=== PATIENT | female | born 2000 ===

== ENCOUNTER 2022-10-07 12:29 | Outpatient (REF) | payer BC, MEDICAID, SELFPAY ==
[2022-10-07 13:38] LABS: Hematocrit 40.3 %; Hemoglobin 12.5 g/dl
[2022-10-07 14:18] LABS: Alanine Aminotransferase 8 U/L; Albumin Level 4.4 g/dL; Alkaline Phosphatase 29 U/L; Aspartate Amino Transferase 17 U/L; Bilirubin Direct 0.5 mg/dL; Bilirubin Total 1.7 mg/dL; Cholesterol 144 mg/dL; HDL Cholesterol 51 mg/dL; LDL Cholesterol Calculated 72 mg/dL; Total Protein 7.3 g/dL; Triglycerides 109 mg/dL
[2022-10-12 15:58] LABS: Testosterone, Free 46.5 pg/mL (see note); Testosterone, Total 342 ng/dL (see note)
== END 2022-10-07 12:30 | disposition home or self-care (01) ==
LOC: HO.HHCL 12:29
PROVIDERS: Visit Provider Nurse Practitioner Primary Care
DX: F64.9 Gender identity disorder, unspecified (principal); Z13.220 Encounter for screening for lipoid disorders; Z13.0 Encounter for screening for diseases of the blood and blood-forming organs and certain disorders involving the immune mechanism
CPT/HCPCS: 36415; 80061; 80076; 84402; 84403; 85014; 85018

== ENCOUNTER 2024-03-08 11:43 | Outpatient (REF) | payer MEDICAID, SELFPAY ==
[2024-03-08 13:29] LABS: Hematocrit 38.9 %; Hemoglobin 12.3 g/dl
--- OUTSIDE RECORDS SUMMARY | 2024-03-08 13:31 | XMS_ITS | Encounter Summary ---
Author Organization [employer] [facility] Address [address] [place] [address] Care Team Providers Care Six Sigma Project Manager Name Role Phone Valerie Robin Primary Care Provider Encounter Details Date Type Department Care Team (Late st Contact Info) Description 01/20/2022 Telephone [facility]INE [address] [place] [address] Jen Heath RN Social History Tobacco Use Types Packs/Day Years Used Date Smoking Tobacco: Never Assessed Comments Unknown Sex and Gender Information Value Date Recorded Sex Assigned at Female 12/16/2021 10:38 AM EDT Legal Sex Female 10:38 AM EDT Gender Identity Male 12/16/2021 10:38 AM EDT Sexual Orientation Choose not to disclose 2022 6:42 PM EST documented as of this encounter Plan of Treatment Upcoming Encounters Date Type Department Care Team (Late st Contact Info) Description 03/15/2024 11:15 AM EST Office Visit [facility] [address] [place] [address] Valerie Robin ANP [address] [place] [address] documented as of this encounter Visit Diagnoses Not on filedocumented in this encounter Care Teams Six Sigma Project Manager Relationship Specialty Start Date End Date Valerie Robin ANP [address] [place] [address] PCP - General Family Medicine 12/18/20 documented as of this encounter
--- OUTSIDE RECORDS SUMMARY | 2024-03-08 13:31 | XMS_ITS | Clinical Summary ---
Author Organization [facility] Address [address] [place] [address] Phone Care Team Providers Care Funeral Home Director Name Role Phone Unavailable Primary Care Provider Unavailabl e Social History Tobacco Use Types Packs/Day Years Used Date Smoking Tobacco: Never Assessed Comments Unknown Sex and Gender Information Value Date Recorded Sex Assigned at Not on file Legal Sex Female 12:17 PM EST Gender Identity Not on file Sexual Orientation Not on file Plan of Treatment Health Maintenance Due Date Last Done Comments MMR Vaccines (1 of 1 - Stand bang series) 2003 Varicella Vaccines (1 of 2 - 13+ 2-dose series) 2015 HPV Vaccines (1 - 3-dose series) 2017 Men B Vaccine (1 of 2 - Standard) 2018 DTaP,Tdap,and Td Vaccines (1 - Tdap) 2020 Hepatitis B Vaccines (1 of 3 - 19+ 3-dose series) 2021 Influenza Vaccines (#1) 2023 COVID-19 Vaccine ( - 2023-2 5 season) 2023 HIB Vaccines Aged Out No longer eligi ble based on patient's age to complete this topic Hepatitis A Vaccines Aged Out No long er eligible based on patient's age to complete this topic IPV Vaccines Aged Out No longer eligi ble based on patient's age to complete this topic Meningococcal Vaccine Aged Out No silvana bennie eligible based on patient's age to complete this topic Pneumococcal Vaccine Aged Out No long er eligible based on patient's age to complete this topic
--- OUTSIDE RECORDS SUMMARY | 2024-03-08 13:31 | XMS_ITS | Encounter Summary ---
Author Organization [employer] Address [address] [place] [address] 7 [place] [address] Care Team Providers Care Fine Wire Drawer Name Role Phone Valerie Robin Primary Care Provider [phone] Reason for Referral * Consultation (STAT) - Authorized Specialty Diagnoses / Procedures Referred By Contac t Referred To Contact Neurology Diagnoses Neuropathic pain Melvin Zamudio MD [address] [place] [address] Phone: tel: fax: [facility] Neurology [address] [place], [place] Phone: tel: fax: Referral ID Status Reason Start Date Expiration Date Visits Requested Visits Authorized [id number] Authorized Specialty Services Required 03/08/2024 03/08/2025 6 6 * Neurology (Urgent) - Authorized Specialty Diagnoses / Procedures Referred By Contac t Referred To Contact Diagnoses Neuropathic pain Procedures Nerve conduction test Melvin Zamudio MD [address] [place] [address] Phone: tel: fax: [facility] [address] [place] [address] Phone: tel: fax: Referral ID Status Reason Start Date Expiration Date V isits Requested Visits Authorized [id number] Authorized 03/08/2024 03/08/2025 1 1 Reason for Visit * Reason Comments Follow-up follow up ER [facility] 02/16 3. ??bilateral foot neuropathy. ??given gabapentin but stopped after 2 days because it was not working. Encounter Details Date Type Department Care Team (Late st Contact Info) Description 03/08/2024 10:00 AM EST Office Visit [facility] MEDICINE [address] [place] [address] Melvin Zamudio MD [address] [place] [address] Neuropathic pain (Primary Dx); Bilateral lower extremity pain Social History Tobacco Use Types Packs/Day Years Used Date Smoking Tobacco: Never Smokeless Tobacco: Never Depression Answer Date Recorded Patient Health Questionnaire-9 Score 0 09/11/2023 Patient Health Questionnaire-9 Score 0 09/11/2023 Last PHQ-9: Questionnaire Data Not on file 0 09/11/2023 Housing Stability Answer Date Recorded What is your housing situation today? I have krystina flory 09/11/[address] you li ve. Do you have problems with any of the following? None of the above 09/11/2023 Food Insecurity Answer Date Recorded Within the past 12 months, y ou worried that your food would run out before you got money to buy more: Never True 09/11/2023 Within the past 12 months,th e food you bought just didn't last and you didn't have enough money to get more: Never True Transportation Answer Date Recorded In the past 12 months, has l ack of transportation kept you from medical appts, meetings, work or from getting things needed for daily living? No 09/11/2023 Utilities Answer Date Recorded In the past 12 months, has t he electric, gas, oil or water company threatened to shut off services in your home? No 09/11/2023 Depression Answer Date Recorded Patient Health Questionnaire-2 Score 0 09/11/2023 Internet Access Answer Date Recorded Internet Access Q1 Yes 10/19/2023 Internet Access Q2 Not on file 10/19/2023 Comments Unknown Sex and Gender Information Value Date Recorded Sex Assigned at Female 12/16/2021 10:38 AM EDT Legal Sex Female 10:38 AM EDT Gender Identity Male 12/16/2021 10:38 AM EDT Sexual Orientation Choose not to disclose 2022 6:42 PM EST documented as of this encounter Last Filed Vital Signs Vital Sign Reading Time Taken Comments Blood Pressure 100/63 03/08/2024 10:11 AM EST Pulse 80 03/08/2024 10:11 AM EST Temperature 35.4 ??C (95.7 ??F) 03/08/2024 10:[address] Respiratory Rate 20 03/08/2024 10:11 AM EST Oxygen Saturation 98% 03/08/2024 10:11 AM EST Inhaled Oxygen Concentration - - Weight 63.5 kg (140 lb) 03/08/2024 10:11 AM EST Height 165.1 cm (5' 5 ) 03/08/2024 10:11 AM EST Body Mass Index 23.3 03/08/2024 10:11 AM EST documented in this encounter Plan of Treatment Upcoming Encounters Date Type Department Care Team (Late st Contact Info) Description 03/15/2024 11:15 AM EST Office Visit [facility] MEDICINE [address] [place], [place] [phone] Valerie Robin, ANP [address] [place] [address] Scheduled Orders Name Type Priority Associated Diagnoses Orde r Schedule Nerve conduction test Neurology Urgent Neuropathic pain Expected: 03/08/2024 (Approximate), Expires: 03/08/2025 XR Foot 3+ Views Right Imaging Routine Neuropathic pain Expected: 03/08/2024, Expires: 03/08/2025 XR Foot 3+ Views Left Imaging Routine Neuropathic pain Expected: 03/08/2024, Expires: 03/08/2025 Vitamin B12/Folate, Serum Panel Lab Routine Neuropathic pain Expected: 03/08/2024, Expires: 03/08/2025 TSH with Reflex to Free T4 Lab Routine Neuropathic pain Ordered: 03/08/2024 Comprehensive Metabolic Panel Lab Routine Neuropathic pain Ordered: 03/08/2024 ESTELA Screen,IFA, with Reflex to Titer and Pattern Lab Routine Neuropathic pain Expected: 03/08/2024 (Approximate), Expires: 03/08/2025 Hepatitis B Core Antibody, Total Lab Routine Neuropathic pain Expected: 03/08/2024 (Approximate), Expires: 03/08/2025 Hepatitis B Surface Antibody, Qualitative Lab Routine Neuropathic pain Expected: 03/08/2024 (Approximate), Expires: 03/08/2025 Hepatitis B surface antigen, EIA Lab Routine Neuropathic pain Expected: 03/08/2024 (Approximate), Expires: 03/08/2025 Hepatitis C Antibody with Reflex to HCV, RNA, Quantitative, Real-Time PCR Lab Routine Neuropathic pain Expected: 03/08/2024 (Approximate), Expires: 03/08/2025 HIV-1/2 Antigen and Antibodies, Fourth Generation, with Reflexes Lab Routine Neuropathic pain Expected: 03/08/2024 (Approximate), Expires: 03/08/2025 Syphilis Screen Lab Routine Neuropathic pain Expected: 03/08/2024 (Approximate), Expires: 03/08/2025 Protein Electrophoresis and [place]/Lambda Light Chains Lab Routine Neuropathic pain Expected: 03/08/2024 (Approximate), Expires: 03/08/2025 Scheduled Referrals Name Type Priority Associated Diagnoses Orde r Schedule Referral to Neurology Outpatient Referral STAT Neuropathic pain Expected: 03/08/2024 (Approximate), Expires: 03/08/2025 documented as of this encounter Visit Diagnoses Diagnosis Neuropathic pain- Primary Bilateral lower extremity pain documented in this encounter Additional Health Concerns Assessment Noted Time PHQ-9 Depression Total Score: 0 09/11/19 24 1:44 PM EDT documented as of this encounter Care Teams Fine Wire Drawer Relationship Specialty Start Date End Date Valerie Robin ANP [address] [place] [address] PCP - General Family Medicine 12/18/20 documented as of this encounter
--- OUTSIDE RECORDS SUMMARY | 2024-03-08 13:31 | XMS_ITS | Encounter Summary ---
Author Organization [employer] Address [address] [place] [address] Care Team Providers Care Parole Hearing Officer Name Role Phone Valerie Robin Primary Care Provider [phone] Reason for Visit * Reason Onset Date Comments ER Follow-up 03/02/2024 Encounter Details Date Type Department Care Team (Late st Contact Info) Description 03/02/2024 Telephone [facility] MEDICINE [address] [place] [address] Valerie Robin ANP [address] [place] [address] ER Follow-up Social History Tobacco Use Types Packs/Day Years Used Date Smoking Tobacco: Never Smokeless Tobacco: Never Depression Answer Date Recorded Patient Health Questionnaire-9 Score 0 09/11/2023 Patient Health Questionnaire-9 Score 0 09/11/2023 Last PHQ-9: Questionnaire Data Not on file 0 09/11/2023 Housing Stability Answer Date Recorded What is your housing situation today? I have krystina ruth 09/11/[address] you li [...] PM EST documented as of this encounter Miscellaneous Notes * Telephone Encounter - Palmira Izaguirre RN - 03/04/2024 12:40 PM EST called pt to triage, spoke to pt. pt states seen ER at [facility] on 02/28 for bilateral foot pain, diagnosed with possible neuropathy. . pt given Gabapentin but stopped after 2 days because it was not working well. advised home care: Gabapentin can start helping right away but may need longer to assess ifit is helping. also, suggested a foot sleeve for both feet, and advised can get in [employer] or [employer] [facility]. advised home care: rest, ice, heat, OTC pain reliever as needed, and call back if worsening or new concerns. given ER follow up appt Thursday with green team provider at 10:00, as PCP has no current available appt. pt understands and agrees with plan. insurance verified. ER notes are already scanned into chart for review. Protocol Used: Foot Pain (Adult) Protocol-Based Disposition: See in Office or Video Visit within 3 Days Video visit offer not recorded Positive Triage Question: * Patient wants to be seen * All higher-acuity triage questions were negative Care Advice Discussed: * Reassurance and Education - Foot Pain * Reassurance and Education - Overuse * Foot Pain - Aggravating Factors * Pain Medicines * Reasons To Call Back - Swelling, redness, or fever occur - Severe pain not relieved by pain medicine - Pain lasts over 7 days - You become worse * Telephone Encounter - Sarah Bal - 03/04/2024 11:38 AM EST Tc from pt returning call. Still has symptom. Symptom: Pain - Severe Outcome: Schedule an urgent appointment (within 1 hour) or talk to a nurse or provider soon Reason: Nerve Pain Contact pt at [phone] * Telephone Encounter - Louann Mcguire RN - 03/02/2024 4:14 PM EST Call returned to [facility] for triage below. No answer LVM to return call to [facility] triage line [phone]. * Telephone Encounter - Leo Matta - 03/02/2024 4:03 PM EST Patient calling to report ED visit on : Date: 02/29/24 Hospital: [facility] Seen for: Neuropathy Symptomatic Yes *if yes message should go to Triage Symptom: Pain - Severe Outcome: Schedule an urgent appointment (within 1 hour) or talk to a nurse or provider soon Reason: Nerve Pain Please contact pt at [phone] documented in this encounter Plan of Treatment Upcoming Encounters Date Type Department Care Team (Late st Contact Info) Description 03/15/2024 11:15 AM EST Office Visit [facility] [address] [place] [address] Valerie Robin ANP [address] [place] [address] documented as of this encounter Visit Diagnoses Not on filedocumented in this encounter Additional Health Concerns Assessment Noted Time PHQ-9 Depression Total Score: 0 09/11/19 24 1:44 PM EDT documented as of this encounter Care Teams Parole Hearing Officer Relationship Specialty Start Date End Date Valerie Robin ANP [address] [place] [address] PCP - General Family Medicine 12/18/20 documented as of this encounter
--- OUTSIDE RECORDS SUMMARY | 2024-03-08 13:31 | XMS_ITS | Clinical Summary ---
Author Organization [employer] Address [address] [place] [address] [place] [address] Care Team Providers Care Maintenance And Engineering Manager Name Role Phone Sharda Valerie FOX Primary Care Provider [phone] Allergies Active Allergy Reactions Criticality Noted Date Comments Amoxicillin 12/18/2020 Medications benzoyl peroxide 5 % gel Apply 1 application topically 1 (one) time each day. 2 Active tretinoin (Altralin) 0.05 % gel Apply 1 application topically at bed time. 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 Encounters Date Type Department Care Team Description 03/08/2024 10:00 AM EST Office Visit [facility] MEDICINE [address] [place] [address] Melvin Zamudio MD Neuropathic pain (Primary Dx); Bilateral lower extremity pain 03/02/2024 Telephone [facility] MEDICINE [address] [place] [address] Valerie Robin ANP ER Follow-up 12/07/2023 Orders Only [facility] [address] [facility] [address] Valerie Robin ANP from Last 3 Months Immunizations Name Administration Dates Next Due DTaP 07/24/2003, 3,2002,2002 Hep A, Unspecified 11/28/2008 Hep A, ped/adol, 2 dose 05/17/2008 Hep B, Unspecified 2002,2002, 003 HiB, unspecified 07/24/2003, 3,2002,2002 IPV 04/03/2006, 3,2002,2002 Influenza injectable quadriv alent preservative free 12/24/2021,12/18/2020 Influenza, Unspecified 01/13/2006,03/11/2004, MMR 06/01/2013,04/03/2006,03/13/2003 Pfizer Covid-19 Vaccine 12+ 07/03/2020, Pneumococcal Conjugate PCV 7 03/13/2003, 2002,2002,2002 Tdap 12/18/2020 Varicella 04/03/2006,07/24/2003 Social History Tobacco Use Types Packs/Day Years Used Date Smoking Tobacco: Never Smokeless Tobacco: Never Tobacco Cessation:Counseling Given: Not Answered Depression Answer Date Recorded Patient Health Questionnaire-9 [...] not to disclose 2022 6:42 PM EST Last Filed Vital Signs Vital Sign Reading [...] Mass Index 23.3 03/08/2024 10:11 AM EST Plan of Treatment Upcoming Encounters Date Type Department Care Team (Late st Contact Info) Description 03/15/2024 11:15 AM EST Office Visit [facility] MEDICINE [address] [place], [place] [phone] Valerie Robin ANP [address] [place], [place] [phone] Health Maintenance Due Date Last Done Comments Chlamydia and Gonorrhea Screening 2002 HIV Screening 2002 Alcohol/Substance Use Screening 2014 Family Planning (PISQ) 2017 HPV Vaccines (1 - 3-dose series) 2017 Hepatitis C Screening 2020 Pap Smear 2023 COVID-19 Vaccine ( season) 2023 05/26/2023, 03/18/2021, 07/03/2020, Additional history exists Influenza Vaccine (#1) 2023 , 12/18/2020, 01/13/2006, Additional history exists Depression Screening 09/10/2024 09/11/2023, 09/11/19 24 SDOH Screening 09/10/2024 09/11/2023 Tobacco Screening 09/10/2024 09/11/2023 DTaP/Tdap/Td Vaccines (6 - Td or Tdap) 12/18/2030 12/18/2020, 07/24/2003, 2002, Additional history exists Zoster Vaccines (1 of 2) 2052 RSV Patients and Patients Aged 60 years or older (1 - 1-dose 75+ series) 2077 Hepatitis B Vaccines Completed 2002, 2002, 2002 Pneumococcal Vaccine: Pediatrics (0 to 5 Years) and At-Risk Patients (6 to 64 Years) Aged Out 03/13/2003, 2002, 2002, Additional history exists No longer eligible based on patient's age to complete this topic HIB Vaccines Completed 07/24/2003, 09/17, 2002, Additional history exists IPV Vaccines Completed 04/03/2006, 09/17, 2002, Additional history exists Hepatitis A Vaccines Completed 11/28/2008, 05/18/19 09 Meningococcal Vaccine Aged Out No silvana bennie eligible based on patient's age to complete this topic RSV under 20 months Aged Out No longe r eligible based on patient's age to complete this topic Rotavirus Vaccines Aged Out No longer eligible based on patient's age to complete this topic Procedures Procedure Name Priority Date/Time Associated Diagnosis Comments HEMOGLOBIN + HEMATOCRIT Routine 03/08/2024 11:46 AM EST Gender dysphoria from Last 3 Months Results * Hemoglobin and Hematocrit (03/08/2024 11:46 AM EST) Hemoglobin 12.3 g/dl [facility] Hematocrit 38.9 % [facility] Blood Venous blood specimen / Unknown 03/08/2024 11:46 AM EST 03/08/2024 1:14 PM EST Valerie FOX LAB BLOOD ORDERABLES Final Resul t [facility] [address] [place] [address] [phone] from Last 3 Months Insurance [facility] [employer] Care Teams Maintenance And Engineering Manager Relationship Specialty Start Date End Date Valerie Robin ANP [address] [place] [address] PCP - General Family Medicine 12/18/20
[2024-03-08 13:46] LABS: Estimated Average Glucose 105 mg/dL; Hemoglobin A1C 107.0569 umol/L; Hemoglobin A1c % 5.3 %
[2024-03-08 14:08] LABS: Alanine Aminotransferase 15 U/L; Albumin Level 4.6 g/dL; Alkaline Phosphatase 28 U/L; Aspartate Amino Transferase 20 U/L; Bilirubin Direct 0.2 mg/dL; Bilirubin Total 0.9 mg/dL; Total Protein 7.7 g/dL
[2024-03-12 22:09] LABS: Testosterone, Free 1.7 pg/mL (see note); Testosterone, Total 13 ng/dL (see note)
[2024-03-14 00:58] LABS: Estradiol Ultra Sensitive 73 pg/mL
== END 2024-03-08 11:44 | disposition home or self-care (01) ==
LOC: HO.HHCL 11:43
PROVIDERS: Visit Provider Nurse Practitioner Primary Care
DX: F64.9 Gender identity disorder, unspecified (principal)
CPT/HCPCS: 36415; 80076; 82670; 83036; 84402; 84403; 85014; 85018

== ENCOUNTER 2024-03-15 05:39 | Outpatient (REF) | payer MEDICAID, SELFPAY ==
--- NOTE | 2024-03-15 | EMG_ITS ---
Bilateral tibial and peroneal motor studies were performed. Bilateral superficial peroneal, sural, and median and lateral plantar sensory studies were performed. Tibial H reflexes were obtained, and paraspinal muscles were tested with a needle. IMPRESSION: [id number] sensory more than motor, somewhat patchy, axonal peripheral neuropathy. MD RAFITA Roberts/SUMAN / [id number]
--- OUTSIDE RECORDS SUMMARY | 2024-03-15 05:41 | XMS_ITS | Clinical Summary ---
Author Organization [facility] Address [address] [place] [address] Phone Care Team Providers Care Linux Kernel Developer Name Role Phone Unavailable Primary Care Provider [...]
--- OUTSIDE RECORDS SUMMARY | 2024-03-15 05:42 | XMS_ITS | Encounter Summary ---
Author Organization [employer] Address [address] [place] [address] [place] [address] Care Team Providers Care Lobby Concierge Name Role Phone Valerie Robin Primary Care Provider [phone] Reason for Visit * Reason Onset Date Comments Referral 2024 Encounter Details Date Type Department Care Team ([facility] st Contact Info) Description 2024 Telephone [facility] [address] [place] [address] Lilo Strauss, surface miner Social History Tobacco Use Types Packs/Day Years [...] encounter Miscellaneous Notes * Telephone Encounter - Lilo Strauss RN - 03/11/2024 9:29 AM EST Telephone call to pt who reports pain is less today, I can take a few steps before it starts hurting. Advised pt to seek medical attention if pain worsens more than when he saw Dr Pepe in [facility]. Reviewed with pt upcoming appts for nerve conduction test on 03/15 and PCP appt on 03/15. Reviewed WIC hours today and Thursday hours, as well as on-call nurse option. Pt verbalized understanding, in agreement with plan. * Telephone Encounter - Lilo Strauss RN - 2024 4:13 PM EST Pt's nerve conduction test scheduled for 03/15/24 at 8:30am. Called pt to status check, no answer, left message to call back. Will task to call again. -- Dr Pepe I already placed the order, can we contact [facility] to see if they can schedule it sadaf. Also can you please do a status check with patient Thank you * Telephone Encounter - Lilo Strauss RN - 2024 9:32 AM EST Received paperwork from medical records requesting that the pt get EMG completed before able to schedule STAT appt with [facility] Neurology. Will send message to ordering provider Dr Pepe. documented in this encounter Plan of Treatment Upcoming Encounters Date Type Department Care Team (Late st Contact Info) Description 03/15/2024 11:15 AM EST Office Visit [facility] MEDICINE [address] [place] [address] Valerie Robin ANP [address] [place] [address] documented as of this encounter Visit Diagnoses Not on filedocumented in this encounter Additional Health Concerns Assessment Noted Time PHQ-9 Depression Total Score: 0 09/11/19 24 1:44 PM EDT documented as of this encounter Care Teams Lobby Concierge Relationship Specialty Start Date End Date Valerie Robin ANP [address] [place] [address] PCP - General Family Medicine 12/18/20 documented as of this encounter
--- OUTSIDE RECORDS SUMMARY | 2024-03-15 05:42 | XMS_ITS | Encounter Summary ---
Author Organization [employer] Address [address] [place] [address] [place] [address] Care Team Providers Care Resource Efficiency Manager Name Role Phone Valerie Robin Primary Care Provider [phone] Encounter Details Date Type Department Care Team ([facility] st Contact Info) Description 03/14/2024 Orders Only [facility] MEDICINE [address] [place], [place] [phone] Valerie Robin ANP [address] [place] [address] Social History Tobacco Use Types Packs/Day Years [...] Description 03/15/2024 11:15 AM EST Office Visit [facility] MEDICINE [address] [place] [address] Valerie Robin ANP [address] [place] [address] documented as of this encounter Visit Diagnoses Not on filedocumented in this encounter Additional Health Concerns Assessment Noted Time PHQ-9 Depression Total Score: 0 09/11/19 24 1:44 PM EDT documented as of this encounter Care Teams Resource Efficiency Manager Relationship Specialty Start Date End Date Valerie Robin ANP [address] [place] [address] PCP - General Family Medicine 12/18/20 documented as of this encounter
--- OUTSIDE RECORDS SUMMARY | 2024-03-15 05:42 | XMS_ITS | Encounter Summary ---
Author Organization [employer] [facility] Address [address] [place] [address] Care Team Providers Care Firepot Operator And Tender Name Role Phone Valerie Robin Primary Care Provider [phone] Encounter Details Date Type Department Care Team (Late st Contact Info) Description 01/20/2022 Telephone [facility] MEDICINE [address] [place] [address] Jen Heath RN Social History Tobacco Use [...] Description 03/15/2024 11:15 AM EST Office Visit [facility] MEDICINE [address] [place] [address] Valerie Robin ANP [address] [place] [address] documented as of this encounter Visit Diagnoses Not on filedocumented in this encounter Care Teams Firepot Operator And Tender Relationship Specialty Start Date End Date Valerie Robin ANP [address] [place] [address] PCP - General Family Medicine 12/18/20 documented as of this encounter
--- OUTSIDE RECORDS SUMMARY | 2024-03-15 05:42 | XMS_ITS | Encounter Summary ---
Author Organization [employer] Address [address] [place] [address] Care Team Providers Care Curtain Feller Blindstitch Name Role Phone Valerie Robin Primary Care Provider [phone] Reason for Visit * Reason Onset Date Comments ER Follow-up 03/02/2024 Encounter Details Date Type Department Care Team (Late st Contact Info) Description 03/02/2024 Telephone [facility] MEDICINE [address] [place] [address] Valerie Robin ANP [address] [place] [address] ER Follow-up Social History Tobacco Use Types [...] to pt. pt states seen ER at [facility] on 02/28 for bilateral foot pain, diagnosed [...] soon Reason: Nerve Pain Contact pt at [phone] * Telephone Encounter - Louann Mcguire RN - 03/02/2024 4:14 PM EST Call returned to [facility] for triage below. No answer LVM to return call to [facility] triage line [phone]. * Telephone Encounter - Leo Matta - 03/02/2024 4:03 PM EST Patient calling to report ED visit on : Date: 02/29/24 Hospital: [facility] Seen for: Neuropathy Symptomatic Yes *if yes message should go to Triage Symptom: Pain - Severe Outcome: Schedule an urgent appointment (within 1 hour) or talk to a nurse or provider soon Reason: Nerve Pain Please contact pt at [phone] documented in this encounter Plan of Treatment Upcoming Encounters Date Type Department Care Team (Late st Contact Info) Description 03/15/2024 11:15 AM EST Office Visit [facility] MEDICINE [address] [place] [address] Valerie Robin ANP [address] [place] [address] documented as of this encounter Visit Diagnoses Not on filedocumented in this encounter Additional Health Concerns Assessment Noted Time PHQ-9 Depression Total Score: 0 09/11/19 24 1:44 PM EDT documented as of this encounter Care Teams Curtain Feller Blindstitch Relationship Specialty Start Date End Date Valerie Robin ANP [address] [place] [address] PCP - General Family Medicine 12/18/20 documented as of this encounter
--- OUTSIDE RECORDS SUMMARY | 2024-03-15 05:42 | XMS_ITS | Encounter Summary ---
Author Organization [employer] Address [address] [facility] 7 [place] [address] Care Team Providers Care Russian Language Professor Name Role Phone Marva Robin Primary Care Provider [phone] Reason for Referral * Consultation (STAT) - Closed Specialty Diagnoses / Procedures Referred By Contac t Referred To Contact Neurology Diagnoses Neuropathic pain Melvin Zamudio MD [address] [place] [address] Phone: tel: fax: [facility] [address] [place], [place] Phone: tel: fax: Referral ID Status Reason Start Date Expiration Date V isits Requested Visits Authorized [id number] Closed Specialty Services Required 03/08/2024 03/08/2025 6 6 * Neurology (Urgent) - Authorized Specialty Diagnoses / Procedures Referred By Contac t Referred To Contact Diagnoses Neuropathic pain Procedures Nerve conduction test eMlvin Zamudio MD [address] [place] [address] Phone: tel: fax: [facility] [address] [place] [address] Phone: tel: fax: Referral ID Status Reason Start Date Expiration Date V isits Requested Visits Authorized [id number] Authorized 03/08/2024 03/08/2025 1 1 Reason for Visit * Reason Comments Follow-up follow up ER [facility] 02/16 3. ??bilateral foot neuropathy. ??given gabapentin but stopped after 2 days because it was not working. Encounter Details Date Type Department Care Team ([facility] st Contact Info) Description 03/08/2024 10:00 AM EST Office [address] [facility] MEDICINE [address] [place] [address] Melvin Zamudio MD [address] [place] [address] Bilateral lower extremity pain (Primary Dx); Neuropathic pain Social History Tobacco Use Types Packs/Day [...] 10:11 AM EST documented in this encounter Progress Notes * Melvin Howe MD - 03/08/2024 10:00 AM EST HODAN Ferrell is a 23 y.o. adult who presents for Follow-up (follow up ER [facility] 02/28. bilateral foot neuropathy. given gabapentin but stopped after 2 days because it was not working.). Patient of marva Robin here for a sick onsite visit with c/o persistent pain on both feet, primarily on the soles described as a burning sensation and pins and needles No numbness. Denies any recent trauma. No back pain. No fever, No rashes. Pt reports inability to walk due to the pain. Right sole > left. Patient was seen at [facility] ER 02/29/2024 work up included an x-ray of right foot, CBC, ESR, CRP that according to ER notes were unremarkable. Patient was started on Gabapentin 100 mg po TID and given a working diagnosis of peripheral neuropathy. Pt took the Gabapentin for a few days but stopped since did not see immediate relief. Has also been taking Tylenol, Ibuoprofen, Lidocaine patches, but reports that the only thing it helps is a warm heating pad. Review of Systems Constitutional: Negative for fever. HENT: Negative for sore throat. Respiratory: Negative for cough and shortness of breath. Cardiovascular: Negative for chest pain. Gastrointestinal: Negative for abdominal pain and nausea. Endocrine: Negative for cold intolerance, heat intolerance, polydipsia, polyphagia and polyuria. Musculoskeletal: Negative for myalgias. Skin: Negative for rash. Neurological: Negative for tremors, seizures and numbness. Hematological: Negative for adenopathy. Allergies Allergen Reactions Amoxicillin OBJECTIVE Vitals: 03/08/24 1011 BP: 100/63 BP Location: Left arm Patient Position: Sitting BP Cuff Size: Adult Pulse: 80 Resp: 20 Temp: 95.7 ??F (35.4 ??C) TempSrc: Temporal SpO2: 98% Weight: 140 lb (63.5 kg) Height: 5' 5 (1.651 m) Physical Exam Vitals reviewed. Constitutional: Appearance: Normal appearance. HENT: Head: Normocephalic and atraumatic. Right Ear: External ear normal. Left Ear: External ear normal. Nose: Nose normal. Mouth/Throat: Mouth: Mucous membranes are moist. Eyes: Conjunctiva/sclera: Conjunctivae normal. Cardiovascular: Rate and Rhythm: Normal rate and regular rhythm. Pulmonary: Effort: Pulmonary effort is normal. Breath sounds: Normal breath sounds. Skin: General: Skin is warm. Neurological: General: No focal deficit present. Mental Status: He is alert and oriented to person, place, and time. Mental status is at baseline. Cranial Nerves: Cranial nerves 2-12 are intact. Sensory: Sensation is intact. Motor: Motor function is intact. No weakness, tremor, atrophy or abnormal muscle tone. Deep Tendon Reflexes: Reflexes are normal and symmetric. Reflexes normal. Comments: Patient with pronounced hyperesthesia on both soles Lower extremity pulses are normal, strength normal Pt unable to bear weight due to hyperesthesia Assessment/Plan Problem List Items Addressed This Visit Bilateral lower extremity pain - Primary Patient with c/o new onset of bilateral pain on both feet right > left, affecting the soles of the feet more significantly. One exam evidence of severe hyperesthesia. No decreased sensation, strength on both lower extremities normal. DTRs normal. Etiology ? Peripheral Neuropathy VS other etiologies will need to be ruled out Plan: See tests ordered, Urgent Neuro consult. Discussed with patient need to present to ER if symptoms do not improve or worsen. I have asked patient to resume Gabapentin 100 mg po TID Follow up with PCP in 1 week Neuropathic pain Relevant Orders Nerve conduction test XR Foot 3+ Views Right XR Foot 3+ Views Left Referral to Neurology Vitamin B12/Folate, Serum Panel TSH with Reflex to Free T4 Comprehensive Metabolic Panel ESTELA Screen,IFA, with Reflex to Titer and Pattern Hepatitis B Core Antibody, Total Hepatitis B Surface Antibody, Qualitative Hepatitis B surface antigen, EIA Hepatitis C Antibody with Reflex to HCV, RNA, Quantitative, Real-Time PCR HIV-1/2 Antigen and Antibodies, Fourth Generation, with Reflexes Syphilis Screen Protein Electrophoresis and Mckenzie/Lambda Light Chains documented in this encounter Miscellaneous Notes * Assessment & Plan Note - Melvin Howe MD - 03/08/2024 1:35 PM EST Associated Problem(s): Bilateral lower extremity pain Patient with c/o new onset of bilateral pain on both feet right > left, affecting the soles of the feet more significantly. One exam evidence of severe hyperesthesia. No decreased sensation, strength on both lower extremities normal. DTRs normal. Etiology ? Peripheral Neuropathy VS other etiologies will need to be ruled out Plan: See tests ordered, Urgent Neuro consult. Discussed with patient need to present to ER if symptoms do not improve or worsen. I have asked patient to resume Gabapentin 100 mg po TID Follow up with PCP in 1 week documented in this encounter Plan of Treatment Upcoming Encounters Date Type Department Care Team (Late st Contact Info) Description 03/15/2024 11:15 AM EST Office Visit [facility] MEDICINE [address] [place], [place] [phone] Marva Robin ANP [address] [place], [place] [phone] Scheduled Orders Name Type Priority Associated Diagnoses [...] 03/08/2024 (Approximate), Expires: 03/08/2025 Protein Electrophoresis and Mckenzie/Lambda Light Chains Lab Routine Neuropathic pain Expected: 03/08/2024 (Approximate), Expires: 03/08/2025 Scheduled Referrals Name Type Priority Associated Diagnoses Orde r Schedule Referral to Neurology Outpatient Referral STAT Neuropathic pain Expected: 03/08/2024 (Approximate), Expires: 03/08/2025 documented as of this encounter Visit Diagnoses Diagnosis Bilateral lower extremity pain- Primary Neuropathic pain documented in this encounter Additional Health Concerns Assessment Noted Time PHQ-9 Depression Total Score: 0 09/11/19 24 1:44 PM EDT documented as of this encounter Care Teams Russian Language Professor Relationship Specialty Start Date End Date Marva Robin ANP [address] [place] [address] PCP - General Family Medicine 12/18/20 documented as of this encounter
--- OUTSIDE RECORDS SUMMARY | 2024-03-15 05:42 | XMS_ITS | Clinical Summary ---
Author Organization [employer] Address [address] [place] [address] 7 [place] [address] Care Team Providers Care Assault Amphibious Vehicle Officer Name Role Phone Sharda Valerie FOX Primary Care Provider Allergies Active Allergy Reactions Criticality Noted Date [...] Diagnosed Date Bilateral lower extremity pain 03/08/2024 Assessment & Plan (03/08/2024 1:36 PM EST): Patient with c/o new onset of bilateral [...] with PCP in 1 week Neuropathic pain 03/08/2024 Gender dysphoria 05/02/2021 Overview (09/11/2023): Topical testosterone 1.62% 4 pumps once daily to upper arms. Encounters Date Type Department Care Team Description 03/14/2024 Orders Only [facility] MEDICINE [address] [place], [place] [phone] Valerie Robin ANP 2024 Telephone [facility] MEDICINE [address] [place], [place] [phone] Lilo Strauss RN Referral 03/08/2024 10:00 AM EST Office Visit [facility] [address] [place], [place] [phone] Melvin Zamudio MD Bilateral lower extremity pain (Primary Dx); Neuropathic pain 03/02/2024 Telephone [facility] [address] [place], [place] [phone] Valerie Robin ANP ER Follow-up from Last 3 Months Immunizations Name Administration Dates Next Due DTaP 07/24/2003, 3,2002,2002 Hep A, Unspecified 11/28/2008 Hep A, ped/adol, 2 dose 05/17/2008 Hep B, Unspecified 2002,2002, 003 HiB, unspecified 07/24/2003, 3,2002,2002 IPV 04/03/2006, 3,2002,2002 Influenza injectable quadriv alent preservative free 12/24/2021,12/18/2020 Influenza, Unspecified 01/13/2006,03/11/2004, MMR 06/01/2013,04/03/2006,03/13/2003 Pfizer Covid-19 Vaccine 12+ 07/03/2020, 1 Pneumococcal Conjugate PCV 7 03/13/2003, 2002,2002,2002 Tdap [...] Description 03/15/2024 11:15 AM EST Office Visit [facility] MEDICINE [address] [place], [place] [phone] Valerie Robin, ANP [address] [place], [place] [phone] Health Maintenance Due Date Last Done Comments [...] Procedure Name Priority Date/Time Associated Diagnosis Comments HEPATIC FUNCTION PANEL Routine 03/08/2024 11:46 AM EST Gender dysphoria HEMOGLOBIN A1C Routine 03/08/2024 11:46 AM EST Gender dysphoria HEMOGLOBIN + HEMATOCRIT Routine 03/08/2024 11:46 AM EST Gender dysphoria ESTRADIOL Routine 03/08/2024 11:46 AM EST Gender dysphoria TESTOSTERONE, FREE (DIALYSIS) AND TOTAL,MS Routine 03/08/2024 11:46 AM EST Gender dysphoria from Last 3 Months Results * Hemoglobin and Hematocrit (03/08/2024 11:46 AM EST) Hemoglobin 12.3 g/dl [facility] Hematocrit 38.9 % [facility] Blood Venous blood specimen / Unknown 03/08/2024 11:46 AM EST 03/08/2024 1:14 PM EST us Valerie Robin [facility] LAB BLOOD ORDERABLES Final Resul t [facility] [address] [place] [phone] * Estradiol (03/08/2024 11:46 AM EST) Estradiol Ultra Sensitive 73 pg/mL [facility] Comment:Adult Reference Rang es for Estradiol, Ultrasensitive: Males: < or = 29 pg/mL Females Follicular Phase: 39-375 pg/mL Luteal Phase: 48-440 pg/mL Postmenopausal Phase: < or = 10 pg/mLPediatric Reference Ranges for Estradiol, Ultrasensitive: Age Males Females (pg/mL) (pg/mL) Pre-pubertal <1 year: Not Established Not Established (1-9 years): < or = 4 < or = 16 10-11 years: < or = 12 < or = 65 12-14 years: < or = 24 < or = 142 15-17 years: < or = 31 < or = 283This test was developed and its analytical performancecharacteristics have been determined by [address].It has not been cleared or approved by FDA. This assay hasbeen validated pursuant to the CLIA regulations and is usedfor clinical purposes.THIS TEST WAS PERFORMED AT:[employer] [id number] [facility] [place] [address]MLEIWCLEVELAND NAPIER MD,PHD,DIONNA Blood Venous blood specimen / Unknown 03/08/2024 11:46 AM EST 03/08/2024 1:14 PM EST Valerie Robin [facility] LAB BLOOD ORDERABLES Final Resul t [facility] [address] [place] [phone] * Testosterone, Free (Dialysis) And Total, MS (03/08/2024 11:46 AM EST) Testosterone, Total 13 see note ng/dL [facility] Comment: Unable to flag abnormal result(s), please refer ?to reference range(s) below:Reference Ranges for Testosterone, Total MS (ng/dL): ?Age ? Male ?FemaleCord Blood ? 17-61 ? 16-441-10 days ? < or = 187 ? < or = 241-2 ??months ?72-344 ?< or = 173-4 months ?< or = 201 ? < or = 125-6 months ?< or = 59 ?< or = 137-11 months ?? < or = 16 ?< or = 11 ??1-5 years ? < or = 5 ? < or = 8 ??6-7 years ? < or = 25 ?< or = 20 ??8-10 years ?< or = 42 ?< or = 35 ?? 11 years ? < or = 260 ? < or = 40 12-13 years ?< or = 420 ? < or = 40 14-17 years ?< or = 1000 ?< or = 40 18-Old Age ?250 - 1100 ? 2 - 45Data from J Clin Invest 1974;53:819-828 andJ Clin Endocrinol Metab 1973;36:1132-1142For additional information, please refer tohttp://[email or web address](This link is being provided for informational/educational purposes only.)This test was developed and its analytical performancecharacteristics have been determined by [employer] [place], [place]. It hasnot been cleared or approved by the U.S. Food and DrugAdministration. This assay has been validated pursuantto the CLIA regulations and is used for clinicalpurposes. Testosterone, Free 1.7 see note pg/mL [facility] Comment: Unable to flag a bnormal result(s), please refer to reference range(s) below:Reference Ranges for Testosterone, Free: Age Male Female [place]-4.9 years Not established 5-9.9 years 5.3 or less 0.2-5.0 10-13.9 years 0.7-52.0 0.1-7.4 14- 17.9 years 18.0-111.0 0.5-3.9 18-69 years 35.0-155.0 0.1-6.4 70-89 years 30.0-135.0 0.2-3.7This test was developed and its analytical performancecharacteristics have been determined by [employer] [place], [place]. It hasnot been cleared or approved by the U.S. Food and DrugAdministration. This assay has been validated pursuantto the CLIA regulations and is used for clinicalpurposes.THIS TEST WAS PERFORMED AT:[employer]/[facility] [place] [address]JWYFURRJUSTINE MURO MD,PHD Blood Venous blood specimen / Unknown 03/08/2024 11:46 AM EST 03/08/2024 1:14 PM EST Valerie Robin ANP LAB BLOOD ORDERABLES Final Resul t Performing Organization Address [facility] de Phone Number [facility] [address] [place] [phone] * Hemoglobin A1c (03/08/2024 11:46 AM EST) Hemoglobin A1c 5.3 % [facility] Estimated Average Glucose 105 mg/dL [facility] Comment:eAG = Estimated ave rage glucose which is %A1C expressed asaverage glucose, using the formula of the C0V-ElyjgfcZhcnucb Glucose study (ADAG), Diabetes Care, Vol.31,#8,Sep. 2007 Blood Venous blood specimen / Unknown 03/08/2024 11:46 AM EST 03/08/2024 1:14 PM EST Valerie Robin ANP LAB BLOOD ORDERABLES Final Resul t Performing Organization Address City/[facility] Co de Phone Number [facility] [address] [place] [address] [phone] * Hepatic Function Panel (03/08/2024 11:46 AM EST) Bilirubin, Total 0.9 mg/dL [facility] Bilirubin, Direct 0.2 mg/dL [facility] Aspartate Amino Transferase 20 U/L [facility] Alanine Aminotransferase 15 U/L [facility] Total Protein 7.7 g/dL [facility] Albumin Level 4.6 g/dL [facility] Alkaline Phosphatase 28 U/L [facility] Blood Venous blood specimen / Unknown 03/08/2024 11:46 AM EST 03/08/2024 1:14 PM EST Valerie FOX LAB BLOOD ORDERABLES Final Resul t [facility] [address] [place] [address] [phone] from Last 3 Months Insurance [id number] Care Teams Assault Amphibious Vehicle Officer Relationship Specialty Start Date End Date Valerie Robin ANP [address] [place] [address] PCP - General Family Medicine 12/18/20
== END 2024-03-15 05:40 | disposition home or self-care (01) ==
LOC: HO.NEURO 05:39
PROVIDERS: PCP Nurse Practitioner Primary Care; Visit Provider Internal Medicine
DX: M79.2 Neuralgia and neuritis, unspecified (principal)
CPT/HCPCS: 95886; 95913

== ENCOUNTER 2024-03-15 12:33 | Outpatient (REF) | payer MEDICAID, SELFPAY ==
--- OUTSIDE RECORDS SUMMARY | 2024-03-15 13:28 | XMS_ITS | Encounter Summary ---
Author Organization [employer] Address [address] [facility] 7 [place] [address] Care Team Providers Care Machine Rope Maker Name Role Phone Marva Robin Primary Care Provider [phone] Reason for Referral * Consultation (STAT) - Closed Specialty Diagnoses / Procedures Referred By Contac t Referred To Contact Neurology Diagnoses Neuropathic pain Melvin Zamudio MD [address] [place] [address] Phone: tel: fax: [facility] [address] [place], [place] Phone: tel: fax: Referral ID Status Reason Start Date Expiration Date V isits Requested Visits Authorized [id number] Closed Specialty Services Required 03/08/2024 03/08/2025 6 6 * Neurology (Urgent) - Authorized Specialty Diagnoses / Procedures Referred By Contac t Referred To Contact Diagnoses Neuropathic pain Procedures Nerve conduction test Melvin Zamudio MD [address] [place] [address] Phone: tel: fax: [facility] [address] [place] [address] Phone: tel: fax: Referral ID Status Reason Start Date Expiration Date V isits Requested Visits Authorized [id number] Authorized 03/08/2024 03/08/2025 1 1 Reason for Visit * Reason Comments Follow-up follow up ER [facility] 02/16 3. ??bilateral foot neuropathy. ??given gabapentin but stopped after 2 days because it was not working. Encounter Details Date Type Department Care Team ([facility] st Contact Info) Description 03/08/2024 10:00 AM EST Office Visit [facility] MEDICINE [address] [place] [address] Melvin Zamudio MD [address] [place] [address] Bilateral lower extremity pain (Primary Dx); Neuropathic [...] who presents for Follow-up (follow up ER [facility] 02/28. bilateral foot neuropathy. given gabapentin but [...] sole > left. Patient was seen at [facility] ER 02/29/2024 work up included an x-ray [...] with Reflexes Syphilis Screen Protein Electrophoresis and Disautel/Lambda Light Chains documented in this encounter Miscellaneous [...] documented in this encounter Plan of Treatment Pending Results Name Type Priority Associated Diagnoses Date /Time Referral to Neurology Outpatient Referral STAT Neuropathic pain 03/09/2024 Scheduled Orders Name Type Priority Associated Diagnoses [...] 03/08/2024 (Approximate), Expires: 03/08/2025 Protein Electrophoresis and Disautel/Lambda Light Chains Lab Routine Neuropathic pain Expected: [...] documented as of this encounter Care Teams Machine Rope Maker Relationship Specialty Start Date End Date Marva Robin ANP [address] [place] [phone] PCP - General Family Medicine 12/18/20 documented as of this encounter
--- OUTSIDE RECORDS SUMMARY | 2024-03-15 13:28 | XMS_ITS | Clinical Summary ---
Author Organization [employer] Address [address] [place] [address] 7 [place] [address] Care Team Providers Care Design Supervisor Name Role Phone Sharda Valerie FOX Primary Care Provider [phone] Allergies Active Allergy Reactions Criticality Noted Date [...] Encounters Date Type Department Care Team Description 03/15/2024 11:15 AM EST Office Visit [facility] [address] [place] [address] Valerie Robin ANP 03/15/2024 Travel 03/14/2024 Orders Only [facility] [address] [place] [address] Valerie Robin ANP 2024 Telephone [facility] [address] [place] [address] Lilo Strauss RN Referral 03/08/2024 10:00 AM EST Office Visit [address] [address] Melvin Zamudio MD Bilateral lower extremity pain (Primary Dx); Neuropathic pain 03/02/2024 Telephone [facility] [address] [place] [address] Valerie Robin ANP ER Follow-up from Last [...] Sign Reading Time Taken Comments Blood Pressure 120/81 03/15/2024 11:24 AM EST Pulse 76 03/15/2024 11:24 AM EST Temperature 36.4 ??C (97.5 ??F) 03/15/2024 11:[address] Respiratory Rate 20 03/15/2024 11:24 AM EST Oxygen Saturation 98% 03/15/2024 11:24 AM EST Inhaled Oxygen Concentration - - Weight 63.5 kg (140 lb) 03/15/2024 11:24 AM EST Height 165.1 cm (5' 5 ) 03/15/2024 11:24 AM EST Body Mass Index 23.3 03/15/2024 11:24 AM EST Plan of Treatment Health Maintenance Due Date Last Done Comments Chlamydia and Gonorrhea Screening 2002 HIV Screening 2002 Family Planning (PISQ) 2017 HPV Vaccines (1 - 3-dose series) 2017 Hepatitis C Screening 2020 Pap Smear 2023 COVID-19 Vaccine ( season) 2023 05/26/2023, 03/18/2021, 07/03/2020, Additional history exists Influenza Vaccine (#1) 2023 , 12/18/2020, 01/13/2006, Additional history exists Depression Screening 09/10/2024 09/11/2023, 09/11/19 24 SDOH Screening 09/10/2024 09/11/2023 Alcohol/Substance Use Screening 03/15/2025 03/15/2024 Tobacco Screening 03/15/2025 03/15/2024 DTaP/Tdap/Td Vaccines (6 - Td or Tdap) [...] (03/08/2024 11:46 AM EST) Hemoglobin 12.3 g/dl [facility] Hematocrit 38.9 % [facility] Blood Venous blood specimen / Unknown 03/08/2024 11:46 AM EST 03/08/2024 1:14 PM EST us Valerie Robin [facility] BLOOD ORDERABLES Final Resul t [facility] [address] [place] [address] [phone] * Estradiol (03/08/2024 11:46 AM EST) Estradiol Ultra Sensitive 73 pg/mL [facility] Comment:Adult Reference Rang es for Estradiol, [...] its analytical performancecharacteristics have been determined by [employer].It has not been cleared or approved by FDA. This assay hasbeen validated pursuant to the CLIA regulations and is usedfor clinical purposes.THIS TEST WAS PERFORMED AT:[employer] [id number] [place] [address]ZVVVLCLEVELAND NAPIER MD,PHD,DIONNA Blood Venous blood specimen / Unknown 03/08/2024 11:46 AM EST 03/08/2024 1:14 PM EST us Valerie [facility] LAB BLOOD ORDERABLES Final Resul t [facility] [address] [place] [phone] * Testosterone, Free (Dialysis) And Total, MS (03/08/2024 11:46 AM EST) Testosterone, Total 13 see note ng/dL [facility] Comment: Unable to flag abnormal result(s), [...] Endocrinol Metab 1973;36:1132-1142For additional information, please refer tohttp://education.Kuratur/faq/[email or web address](This link is being provided for informational/educational purposes only.)This test was developed and its analytical performancecharacteristics have been determined by [employer] [place], [place]. It hasnot been cleared or approved by the U.S. Food and DrugAdministration. This assay has been validated pursuantto the CLIA regulations and is used for clinicalpurposes. Testosterone, Free 1.7 see note pg/mL [facility] Comment: Unable to flag a bnormal result(s), please refer to reference range(s) below:Reference Ranges for Testosterone, Free: Age Male Female -4.9 years Not established 5-9.9 years 5.3 or less 0.2-5.0 10-13.9 years 0.7-52.0 0.1-7.4 14- 17.9 years 18.0-111.0 0.5-3.9 18-69 years 35.0-155.0 0.1-6.4 70-89 years 30.0-135.0 0.2-3.7This test was developed and its analytical performancecharacteristics have been determined by [employer] [place], [place]. It hasnot been cleared or approved by the U.S. Food and DrugAdministration. This assay has been validated pursuantto the CLIA regulations and is used for clinicalpurposes.THIS TEST WAS PERFORMED AT:[employer]/[id number] [place] [address]UOJRYHLJUSTINE MURO MD,PHD Blood Venous blood specimen / Unknown 03/08/2024 11:46 AM EST 03/08/2024 1:14 PM EST Valerie Robin [facility] BLOOD ORDERABLES Final Resul t Performing Organization Address [facility]/ZIP Co de Phone Number [facility] [address] [place] [phone] * Hemoglobin A1c (03/08/2024 11:46 AM EST) Hemoglobin A1c 5.3 % [facility] Estimated Average Glucose 105 mg/dL [facility] Comment:eAG = Estimated ave rage glucose which is %A1C expressed asaverage glucose, using the formula of the [id number] Glucose study (ADAG), Diabetes Care, Vol.31,#8,Sep. 2007 Blood Venous blood specimen / Unknown 03/08/2024 11:46 AM EST 03/08/2024 1:14 PM EST Valerie Robin [facility] BLOOD ORDERABLES Final Resul t Performing Organization Address [facility]/ZIP Co de Phone Number [facility] [address] [place] [phone] * Hepatic Function Panel (03/08/2024 11:46 AM EST) Bilirubin, Total 0.9 mg/dL [facility] Bilirubin, Direct 0.2 mg/dL [facility] Aspartate Amino Transferase 20 U/L [facility] Alanine Aminotransferase 15 U/L [facility] Total Protein 7.7 g/dL [facility] Albumin Level 4.6 g/dL [facility] Alkaline Phosphatase 28 U/L [facility] Blood Venous blood specimen / Unknown 03/08/2024 11:46 AM EST 03/08/2024 1:14 PM EST Valerie Robin ANP LAB BLOOD ORDERABLES Final Resul t [facility] [address] [place] [phone] [phone] from Last 3 Months Insurance [employer] Care Teams Design Supervisor Relationship Specialty Start Date End Date Valerie Robin ANP [address] [place] [address] PCP - General Family Medicine 12/18/20
--- OUTSIDE RECORDS SUMMARY | 2024-03-15 13:28 | XMS_ITS | Encounter Summary ---
Author Organization [employer] Address [address] [place] [address] Care Team Providers Care Logistics Intern Name Role Phone Valerie Robin Primary Care Provider [phone] Encounter Details Date Type Department Care Team ([facility] st Contact Info) Description 01/20/2022 Telephone [facility] [address] [place] [address] Jen Heath RN Social History Tobacco Use [...] as of this encounter Plan of Treatment Not on file documented as of this encounter Visit Diagnoses Not on filedocumented in this encounter Care Teams Logistics Intern Relationship Specialty Start Date End Date Valerie Robin ANP [address] [place] [address] PCP - General Family Medicine 12/18/20 documented as of this encounter
--- OUTSIDE RECORDS SUMMARY | 2024-03-15 13:28 | XMS_ITS | Clinical Summary ---
Author Organization [facility] Address [address] [place] [address] Phone Care Team Providers Care Project Financial Analyst Name Role Phone Unavailable Primary Care Provider [...]
--- OUTSIDE RECORDS SUMMARY | 2024-03-15 13:28 | XMS_ITS | Encounter Summary ---
Author Organization [employer] Address [address] [place] [address] Care Team Providers Care Cleaning Technician Name Role Phone Valerie Robin Primary Care Provider [phone] Encounter Details Date Type Department Care Team ([facility] st Contact Info) Description 03/15/2024 11:15 AM EST Office Visit [facility] [address] [place], [place] [phone] Valerie Robin ANP [address] [place] [address] Social History Tobacco Use Types Packs/Day Years [...] Mass Index 23.3 03/15/2024 11:24 AM EST documented in this encounter Plan of Treatment Not on file documented as of this encounter Visit Diagnoses Not on filedocumented in this encounter Additional Health Concerns Assessment Noted Time PHQ-9 Depression Total Score: 0 09/11/19 24 1:44 PM EDT documented as of this encounter Care Teams Cleaning Technician Relationship Specialty Start Date End Date Valerie Robin ANP [address] [place] [phone] PCP - General Family Medicine 12/18/20 documented as of this encounter
--- OUTSIDE RECORDS SUMMARY | 2024-03-15 13:28 | XMS_ITS | Encounter Summary ---
Author Organization [employer] Address [address] [place] [address] [place] [address] Care Team Providers Care Volunteer Services Coordinator Name Role Phone Valerie Robin Primary Care Provider [phone] Encounter Details Date Type Department Care Team ([facility] st Contact Info) Description 03/14/2024 Orders Only [facility] [address] [place], [place] [phone] Valerie Robin ANP [address] [place] [address] Social History Tobacco Use Types Packs/Day Years [...] documented as of this encounter Care Teams Volunteer Services Coordinator Relationship Specialty Start Date End Date Valerie Robin ANP [address] [place] [phone] PCP - General Family Medicine 12/18/20 documented as of this encounter
--- OUTSIDE RECORDS SUMMARY | 2024-03-15 13:28 | XMS_ITS | Encounter Summary ---
Author Organization [employer] Address [address] [place] [address] Care Team Providers Care Line Helper Name Role Phone Valerie Robin Primary Care Provider [phone] Reason for Visit * Reason Onset Date Comments ER Follow-up 03/02/2024 Encounter Details Date Type Department Care Team (Late st Contact Info) Description 03/02/2024 Telephone [facility] [address] [place] [address] Valerie Robin ANP [address] [place] [address] ER Follow-up Social History Tobacco Use Types [...] to pt. pt states seen ER at [facility] on 02/28 for bilateral foot pain, diagnosed [...] soon Reason: Nerve Pain Contact pt at [phone] * Telephone Encounter - Louann Mcguire RN - 03/02/2024 4:14 PM EST Call returned to [facility] for triage below. No answer LVM to return call to [facility] triage line [phone]. * Telephone Encounter - Leo Matta - 03/02/2024 4:03 PM EST Patient calling to report ED visit on : Date: 02/29/24 Hospital: [facility] Seen for: Neuropathy Symptomatic Yes *if yes message should go to Triage Symptom: Pain - Severe Outcome: Schedule an urgent appointment (within 1 hour) or talk to a nurse or provider soon Reason: Nerve Pain Please contact pt at [phone] documented in this encounter Plan of Treatment Not on file documented as of this encounter Visit Diagnoses Not on filedocumented in this encounter Additional Health Concerns Assessment Noted Time PHQ-9 Depression Total Score: 0 09/11/19 24 1:44 PM EDT documented as of this encounter Care Teams Line Helper Relationship Specialty Start Date End Date Valerie Robin ANP [address] [place] [address] PCP - General Family Medicine 12/18/20 documented as of this encounter
--- OUTSIDE RECORDS SUMMARY | 2024-03-15 13:28 | XMS_ITS | Encounter Summary ---
Author Organization [employer] Address [address] [place] [address] [place] [address] Care Team Providers Care Gasoline Tester Name Role Phone Valerie Robin Primary Care Provider [phone] Reason for Visit * Reason Onset Date Comments Referral 2024 Encounter Details Date Type Department Care Team ([facility] st Contact Info) Description 2024 Telephone [facility] [address] [place] [address] Lilo Strauss, wardrobe manager Social History Tobacco Use Types Packs/Day Years [...] than when he saw Dr Pepe in [facility]. Reviewed with pt upcoming appts for nerve [...] already placed the order, can we contact [facility] to see if they can schedule it sadaf. Also can you please do a status check with patient Thank you * Telephone Encounter - Lilo Strauss RN - 2024 9:32 AM EST Received paperwork from medical records requesting that the pt get EMG completed before able to schedule STAT appt with [facility]. Will send message to ordering provider Dr Pepe. documented in this encounter Plan of Treatment Not on file documented as of this encounter Visit Diagnoses Not on filedocumented in this encounter Additional Health Concerns Assessment Noted Time PHQ-9 Depression Total Score: 0 09/11/19 24 1:44 PM EDT documented as of this encounter Care Teams Gasoline Tester Relationship Specialty Start Date End Date Valerie Robin ANP [address] [place] [phone] PCP - General Family Medicine 12/18/20 documented as of this encounter
--- OUTSIDE RECORDS SUMMARY | 2024-03-15 13:28 | XMS_ITS | Encounter Summary ---
Author Organization [employer] Address [address] [place] [address] 7 [place] [address] Care Team Providers Care Shop Clerk Name Role Phone Robin Valerie FOX Primary Care Provider [phone] Encounter Details Date Type Department Care Team (Latest Contact Info) Description 03/15/2024 Travel Social History Tobacco Use Types Packs/Day Years [...] documented as of this encounter Care Teams Shop Clerk Relationship Specialty Start Date End Date Valerie Robin ANP [address] [place] [address] PCP - General Family Medicine 12/18/20 documented as of this encounter
[2024-03-15 14:16] LABS: Alanine Aminotransferase 18 U/L; Albumin Level 4.7 g/dL; Alkaline Phosphatase 30 U/L; Anion Gap 9; Aspartate Amino Transferase 20 U/L; Bilirubin Total 0.6 mg/dL; Blood Urea Nitrogen 19 mg/dL; Calcium 9.8 mg/dL; Carbon Dioxide 28 mmol/L; Chloride 103 mmol/L; Estimated Glomerular Filt Rate > 60; Glucose Random 100 mg/dL; Sodium 136 mmol/L; Total Protein 8.4 g/dL
[2024-03-15 14:22] LABS: HBS Num1 1.58 mIU/mL; HBc Num1 0.14 S/CO; HBsAGNum1 0.39 S/CO; HIV AB/AG Nonreactive; HIV Num 1 0.04 S/CO; Hepatitis B Core Antibody Nonreactive; Hepatitis B Surface Antigen Negative; ~HepC Num1 0.13 S/CO; ~Hepatitis B Surface Antibody NONREACTIVE; ~Hepatitis C Antibody Nonreactive
[2024-03-15 14:25] LABS: Folate 8.5 ng/mL; Syphilis Screen Nonreactive; Vitamin B12 1002 pg/mL
[2024-03-15 14:34] LABS: TSH reflex Free T4 1.81 uIU/mL
[2024-03-17 14:52] LABS: Anti Nuclear Antibody Screen NEGATIVE (NEGATIVE)
== END 2024-03-15 12:34 | disposition home or self-care (01) ==
LOC: HO.HHCL 12:33
PROVIDERS: Visit Provider Internal Medicine
DX: M79.2 Neuralgia and neuritis, unspecified (principal)
CPT/HCPCS: 36415; 80053; 82607; 82746; 84443; 86038; 86704; 86706; 86780; 86803; 87340; 87389